=== PATIENT | female | born 1950 | race American Indian/Alaskan Native ===

== ENCOUNTER 2016-11-11 13:31 | Emergency (ER) | payer OTHER ==
[2016-11-11 13:31] VITALS: BMI 32.2
[2016-11-11 13:40] VITALS: RESP 20; O2SAT 97
--- NOTE | 2016-11-11 14:42 | C.PDOC ---
History Of Present Illness 66 yo female w/PMHx of HTN, RhA, come in for evaluation of sudden onset of upper frontal gum bleeding developed this AM, while brushing teeth resolved with time. Pt admits, woke up this AM with headache and dizziness that last for few hours and resolved . At present time, pt admits- asymptomatic. Pt sts, " my BP was running high lately". Pt takes Lazartan daily at night time, complaint. Otherwise, pt denies worse headache of life, visual changes, focal deficits, CP , SOB, dyspnea, palpitation, diaphoresis, abd. pain, N/V/D, back pain, hematuria , denies anticoagulation therapy. Ambulate to ED for evaluation, not in any apparent distress. FYI: Records from previous visits review and noted pt baseline BP 160'/80'. Time Seen by Provider: 11/11/16 14:01 Chief Complaint (Nursing): Dental Pain History Per: Patient Past Medical History Reviewed: Historical Data, Nursing Documentation, Vital Signs Vital Signs: Last Vital Signs Temp 97.7 F 11/11/16 13:39 Pulse 94 H 11/11/16 13:39 Resp 20 11/11/16 13:39 BP 194/78 H 11/11/16 13:39 Pulse Ox 97 11/11/16 14:42 - Medical History PMH: Diabetes, HTN, Hypercholesterolemia, Rheumatoid Arthritis, TIA (2005) - [facility] Procedures CLOSED ENDOSCOPIC BIOPSY OF LARGE INTESTINE (10/11/02) ENDO RECTUM POLYPECTOMY (10/11/02) ESOPHAGOGASTRODUODENOSCOPY [EGD] W/CLOSED BIOPSY (10/03/06) Family History: States: No Known Family Hx - Social History Hx Tobacco Use: No Hx Alcohol Use: No Hx Substance Use: No - Immunization History Hx Tetanus Toxoid Vaccination: Yes Hx Influenza Vaccination: Yes Hx Pneumococcal Vaccination: Yes Review Of Systems Except As Marked, All Systems Reviewed And Found Negative. Constitutional: Negative for: Fever, Chills Eyes: Negative for: Vision Change, Eyelid Inflammation, Redness ENT: Positive for: Mouth Pain. Negative for: Mouth Swelling, Throat Pain, Throat Swelling Cardiovascular: Negative for: Chest Pain, Palpitations, Edema, Light Headedness Respiratory: Negative for: Cough, Shortness of Breath Gastrointestinal: Negative for: Nausea, Vomiting, Abdominal Pain Genitourinary: Negative for: Incontinence Musculoskeletal: Negative for: Neck Pain, Back Pain Neurological: Negative for: Weakness, Numbness, Altered Mental Status Physical Exam - Physical Exam Appears: Well, Non-toxic, No Acute Distress Skin: Normal Color, Warm, Dry Head: Normacephalic Eye(s): bilateral: Normal Inspection, PERRL, EOMI Ear(s): Bilateral: Normal Nose: Normal, No Discharge Oral Mucosa: Moist, No Drooling Gingiva: Erythema (mild erythema over Left upper gingiva. no edema, no flactulance.) Throat: Normal Neck: Normal, Normal ROM, Supple Cardiovascular: Rhythm Regular Respiratory: Normal Breath Sounds, No Stridor, No Wheezing Gastrointestinal/Abdominal: Normal Exam, Soft, No Tenderness Back: Normal Inspection, No CVA Tenderness Extremity: Normal ROM Neurological/Psych: Oriented x3, Normal Speech, Normal Motor, Normal Sensation, Normal Reflexes ED Course And Treatment O2 Sat by Pulse Oximetry: 97 Pulse Ox Interpretation: Normal Progress Note: On re-eval, pt is afebrile, hemodynamicaly stable. Non-toxic. Ambulatory in ED with stable gait. ENT: no acute findings, no evidence of tooth abscess. Neurologicaly intact. Pt has hx of HTN poorly controlled. Pt advsied and ref. to F/u with PMD In 2-3 days for re-eval. return if any new changes. Disposition Counseled Patient/Family Regarding: Diagnosis, Need For Followup - Disposition Referrals: Mary Jo Rodriguez MD [Staff Provider] - Disposition: HOME/ ROUTINE Disposition Time: 14:42 Condition: STABLE Additional Instructions: Follow up with PMD in 1-2 days for re-evaluation and BP adjustment. return to ED if any worsening ro new changes. Instructions: Chronic Hypertension (ED) - Clinical Impression Clinical Impression: Hypertension
[2016-11-11 15:05] VITALS: BP 174/88; PULSE 78; TEMP 97.9
== END 2016-11-11 15:06 | disposition home or self-care (01) ==
LOC: C.ER 13:31
DX: I10 Essential (primary) hypertension (principal)

== ENCOUNTER 2017-05-31 11:00 | Emergency (ER) | payer OTHER ==
[2017-05-31 11:01] VITALS: BMI 33.1
[2017-05-31 11:29] VITALS: RESP 18; TEMP 98.1
--- NOTE | 2017-05-31 12:44 | C.PDOC ---
History Of Present Illness 66 year old female presents to the ED with complaints of a cough that has been occurring for the past 2 days. Patient states her cough is associated with a runny nose with "post nasal drip symptoms". Patients denies fever, CP, SOB, rash , recent travel, no known sick contact. Time Seen by Provider: 05/31/17 11:38 Chief Complaint (Nursing): Cough, Cold, Congestion History Per: Patient History/Exam Limitations: no limitations Onset/Duration Of Symptoms: Days Current Symptoms Are (Timing): Still Present Sick Contacts (Context): None Associated Symptoms: Cough, Sputum, Sinus Drainage. denies: Fever, Chills Recent travel outside of the [place]: No Additional History Per: Patient Past Medical History Reviewed: Historical Data, Nursing Documentation, Vital Signs Vital Signs: Last Vital Signs Temp 98.1 F 05/31/17 11:28 Pulse 65 05/31/17 12:58 Resp 18 05/31/17 12:58 BP 142/82 05/31/17 12:58 Pulse Ox 97 05/31/17 17:09 - Medical History PMH: Diabetes, HTN, Hypercholesterolemia, Rheumatoid Arthritis, TIA (2005) Surgical History: No Surg Hx - [facility] Procedures CLOSED ENDOSCOPIC BIOPSY OF LARGE INTESTINE (10/11/02) ENDO RECTUM POLYPECTOMY (10/11/02) ESOPHAGOGASTRODUODENOSCOPY [EGD] W/CLOSED BIOPSY (10/03/06) Family History: States: Unknown Family Hx - Social History Hx Tobacco Use: No Hx Alcohol Use: No Hx Substance Use: No - Immunization History Hx Tetanus Toxoid Vaccination: Yes Hx Influenza Vaccination: Yes Hx Pneumococcal Vaccination: Yes Physical Exam - Physical Exam Appears: Well, Non-toxic, No Acute Distress Skin: Normal Color, Warm, Dry, No Rash Head: Atraumatic, Normacephalic, Other (No sinus tenderness) Eye(s): bilateral: Normal Inspection, PERRL, EOMI Ear(s): Bilateral: Normal Nose: Normal, No Discharge Oral Mucosa: Moist Throat: Normal, No Erythema, No Exudate Neck: Normal ROM, Supple Chest: Symmetrical, No Tenderness Cardiovascular: Rhythm Regular, No Friction Rub, No Murmur Respiratory: Normal Breath Sounds, No Accessory Muscle Use, No Rhonchi, No Wheezing Gastrointestinal/Abdominal: Soft, No Tenderness Neurological/Psych: Oriented x3, Normal Speech, Normal Cognition Gait: Steady ED Course And Treatment O2 Sat by Pulse Oximetry: 97 (Room air) Pulse Ox Interpretation: Normal Medical Decision Making Medical Decision Making: Plan : * Claritin 10 mg PO * Motrin 600 mg PO * Predisone 40 mg PO Disposition - Disposition Referrals: Mary Jo Rodriguez MD [Primary Care Provider] - Disposition: HOME/ ROUTINE Disposition Time: 12:41 Condition: GOOD Additional Instructions: Follow up with the medical doctor within 1-2 days. Return if worsened. Prescriptions: Ibuprofen [Motrin] 600 mg PO TID #21 tab Loratadine [Claritin] 10 mg PO DAILY #10 tab predniSONE [Prednisone] 20 mg PO BID #10 tab Instructions: Upper Respiratory Infection (ED) Forms: [employer] (Korean) - Clinical Impression Clinical Impression: Upper respiratory infection - PA / [employer]ORER [employer]SE / Resident Statement MD/DO has reviewed & agrees with the documentation as recorded. - Scribe Statement The provider has reviewed the documentation as recorded by the Scribe Oj Arias All medical record entries made by the Scribe were at my direction and personally dictated by me. I have reviewed the chart and agree that the record accurately reflects my personal performance of the history, physical exam, medical decision making, and the department course for this patient. I have also personally directed, reviewed, and agree with the discharge instructions and disposition.
[2017-05-31 12:58] VITALS: BP 142/82; PULSE 65
[2017-05-31 17:04] VITALS: O2SAT 97
== END 2017-05-31 12:59 | disposition home or self-care (01) ==
LOC: C.ER 11:00 → SUPCPDRO 11:00 → C.ER 12:59
DX: J06.9 Acute upper respiratory infection, unspecified (principal)

== ENCOUNTER 2018-02-27 15:03 | Emergency (ER) | payer OTHER ==
[2018-02-27 15:03] VITALS: BMI 32.8
[2018-02-27 15:29] VITALS: BP 174/81; PULSE 72; RESP 18; TEMP 98.4; O2SAT 98
--- NOTE | 2018-02-27 16:16 | C.PDOC ---
History Of Present Illness 67yo female with history of diabetes, neuropathy, vascular issues, arthritis, comes to ER with complaints of right groin pain which is shooting down her leg. Patient reports the pain is making it hard for her to drive and has been ongoing and worsening for the past 3 weeks. She is currently taking Gabapentin but states only takes it 2x per day instead of TID as the medication makes her sleepy. She denies any trauma, injury, weakness, numbness, fevers, leg swelling , chest pain, shortness of breath or prolonged immobilizations. Patient has a secondary complaint of rash on bilateral forearms, present for an unclear period of time. She states the rash is similar to what she has had in the past during summer time and is unrelieved with calamine lotion and hydrocortisone cream use. Time Seen by Provider: 02/27/18 15:40 Chief Complaint (Nursing): Lower Extremity Problem/Injury History Per: Patient History/Exam Limitations: no limitations Onset/Duration Of Symptoms: Days, Persistent Current Symptoms Are (Timing): Worse Additional History Per: Patient Past Medical History Reviewed: Historical Data, Nursing Documentation, Vital Signs Vital Signs: Last Vital Signs Temp 98.4 F 02/27/18 15:24 Pulse 72 02/27/18 15:24 Resp 18 02/27/18 15:24 BP 174/81 H 02/27/18 15:24 Pulse Ox 98 03/02/18 18:06 - Medical History PMH: Diabetes, HTN, Hypercholesterolemia, Rheumatoid Arthritis, TIA (2005) Surgical History: No Surg Hx - [facility] Procedures CLOSED ENDOSCOPIC BIOPSY OF LARGE INTESTINE (10/11/02) ENDO RECTUM POLYPECTOMY (10/11/02) ESOPHAGOGASTRODUODENOSCOPY [EGD] W/CLOSED BIOPSY (10/03/06) Family History: States: Unknown Family Hx - Social History Hx Tobacco Use: No Hx Alcohol Use: No Hx Substance Use: No - Immunization History Hx Tetanus Toxoid Vaccination: No Hx Influenza Vaccination: No Hx Pneumococcal Vaccination: No Review Of Systems Constitutional: Negative for: Fever, Chills Cardiovascular: Negative for: Chest Pain Respiratory: Negative for: Shortness of Breath Musculoskeletal: Positive for: Leg Pain (left sided) Skin: Positive for: Rash Neurological: Negative for: Weakness, Numbness Physical Exam - Physical Exam Appears: Non-toxic, No Acute Distress Skin: Warm, Dry, Rash (scattered papules on bilateral forearms) Head: Atraumatic, Normacephalic Eye(s): bilateral: Normal Inspection Neck: Supple Chest: Symmetrical Cardiovascular: Rhythm Regular Extremity: Normal ROM (FROM left hip, knee, and ankle.), Tenderness (right thigh , no swelling or redness), No Pedal Edema, No Calf Tenderness, No Deformity, No Swelling, Other (no skin changes; no darien's sign) Pulses: Left Femoral: Normal, Right Femoral: Normal, Left Dorsalis Pedis: Normal , Right Dorsalis Pedis: Normal Neurological/Psych: Oriented x3, Normal Speech, Normal Cognition, Normal Motor, Normal Sensation Gait: Steady ED Course And Treatment O2 Sat by Pulse Oximetry: 98 (RA) Pulse Ox Interpretation: Normal Medical Decision Making Medical Decision Making: Impression: Leg pain, skin rash. discussed with to reason for pain not clear , but given hx of other vascular problems, needs to f/u with Dr Braun. little suspicion for dvt; no posterior calf pain, swelling or tenderness. Plan: -- Patient instructed to take Gabapentin as prescribed. Also instructed to take Lotrimine for her rash. Discussed with patient for need for follow up with Dr. Rodriguez and Dr. Braun. Patient is stable upon discharge home. Disposition Counseled Patient/Family Regarding: Diagnosis, Need For Followup, Rx Given - Disposition Referrals: Mary Jo Rodriguez MD [Staff Provider] - Serafin Braun Jr., MD [Staff Provider] - Disposition: HOME/ ROUTINE Disposition Time: 16:16 Condition: GOOD Additional Instructions: Please take your gabapentin as prescribed. Continue meloxicam. Take Tylenol as well. Follow up as soon as possible with Viky Rodriguez and Kade. 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 - Scribe Statement The provider has reviewed the documentation as recorded by the Rena Ceballos Provider Attestation: All medical record entries made by the Rena were at my direction and personally dictated by me. I have reviewed the chart and agree that the record accurately reflects my personal performance of the history, physical exam, medical decision making, and the department course for this patient. I have also personally directed, reviewed, and agree with the discharge instructions and disposition.
== END 2018-02-27 16:32 | disposition home or self-care (01) ==
LOC: C.ER 15:03
DX: M79.604 Pain in right leg (principal)

== ENCOUNTER 2018-05-07 12:02 | Emergency (ER) | payer OTHER ==
[2018-05-07 12:02] VITALS: BMI 32.8
[2018-05-07 12:11] VITALS: BP 137/85; PULSE 71; RESP 18; TEMP 98.3; O2SAT 99
[2018-05-07] MEDS ORDERED: Dexamethasone 4 mg/1 ml IM STA (12:31)
--- NOTE | 2018-05-07 12:34 | C.PDOC ---
History Of Present Illness 67 year old female presents to the ER with a complaint of itchy diffuse hives for the past [address] days after having a [address] with IV contrast of the leg 3 days ago. Patient states at the time she was pre-medicated with benadryl and prednisone. Denies SOB, lip or tongue swelling. Time Seen by Provider: 05/07/18 12:15 Chief Complaint (Nursing): Abnormal Skin Integrity History Per: Patient History/Exam Limitations: no limitations Onset/Duration Of Symptoms: Days Current Symptoms Are (Timing): Still Present Quality Of Symptoms: Itching Recent travel outside of the [place]: No Past Medical History Reviewed: Historical Data, Nursing Documentation, Vital Signs Vital Signs: Last Vital Signs Temp 98.3 F 05/07/18 12:08 Pulse 71 05/07/18 12:08 Resp 18 05/07/18 12:08 BP 137/85 05/07/18 12:08 Pulse Ox 99 05/07/18 12:42 - Medical History PMH: Diabetes, HTN, Hypercholesterolemia, Rheumatoid Arthritis, TIA (2005, 2011 stroke) - [facility] Procedures CLOSED ENDOSCOPIC BIOPSY OF LARGE INTESTINE (10/11/02) ENDO RECTUM POLYPECTOMY (10/11/02) ESOPHAGOGASTRODUODENOSCOPY [EGD] W/CLOSED BIOPSY (10/03/06) Family History: States: Unknown Family Hx - Social History Hx Tobacco Use: No Hx Alcohol Use: No Hx Substance Use: No - Immunization History Hx Tetanus Toxoid Vaccination: No Hx Influenza Vaccination: No Hx Pneumococcal Vaccination: No Review Of Systems Except As Marked, All Systems Reviewed And Found Negative. Skin: Positive for: Rash Physical Exam - Physical Exam Appears: Non-toxic, Other (Scratching, mildly uncomfortable) Skin: Warm, Dry, Other (Mild diffuse urticaria to arms, chest, and legs) Head: Atraumatic, Normacephalic Eye(s): bilateral: Normal Inspection Nose: Normal Oral Mucosa: Moist, No Drooling Tongue: Normal Appearing, No Swelling Lips: Normal Appearing, No Swelling Throat: Normal, No Erythema, No Other (Swelling) Neck: Normal, Supple Chest: Symmetrical, No Tenderness Cardiovascular: Rhythm Regular Respiratory: Normal Breath Sounds, No Rales, No Rhonchi, No Wheezing Neurological/Psych: Oriented x3, Normal Speech ED Course And Treatment O2 Sat by Pulse Oximetry: 99 (Room air) Pulse Ox Interpretation: Normal Progress Note: Claritin, decadron, and pepcid administered. Patient reports improvement of symptoms, will discharge home with Rx and instructions to follow up with PMD. Disposition Counseled Patient/Family Regarding: Diagnosis, Need For Followup, Rx Given - Disposition Referrals: [facility] [Outside] Disposition: HOME/ ROUTINE Disposition Time: 12:45 Condition: STABLE Additional Instructions: FOLLOW UP IN THE MEDICAL CLINIC IN 1-2 DAYS USE CLARITIN ONCE DAILY NEEDED FOR ITCHING RETURN TO ER IF SYMPTOMS WORSEN MONITOR YOUR BLOOD SUGAR CLOSELY, THE DECADRON YOU WERE GIVEN WILL RAISE IT Prescriptions: Loratadine [Claritin] 10 mg PO DAILY PRN #30 tab PRN Reason: Itching / Pruritus Instructions: Jack (DC), Drug Allergy Forms: [employer] (Bengali) Print Language: BURKINAN - Clinical Impression Clinical Impression: Allergic reaction caused by a drug, Allergy to IVP dye - Scribe Statement The provider has reviewed the documentation as recorded by the Scribe Provider Attestation: Lacho Andersen All medical record entries made by the Scribe were at my direction and personally dictated by me. I have reviewed the chart and agree that the record accurately reflects my personal performance of the history, physical exam, medical decision making, and the department course for this patient. I have also personally directed, reviewed, and agree with the discharge instructions and disposition.
== END 2018-05-07 12:51 | disposition home or self-care (01) ==
LOC: C.ER 12:02
DX: L50.9 Urticaria, unspecified (principal); T50.8X5A Adverse effect of diagnostic agents, initial encounter; E78.00 Pure hypercholesterolemia, unspecified; I10 Essential (primary) hypertension; E11.9 Type 2 diabetes mellitus without complications; M06.9 Rheumatoid arthritis, unspecified; Z86.73 Personal history of transient ischemic attack (TIA), and cerebral infarction without residual deficits
CPT/HCPCS: 96372; 99283; J1100

== ENCOUNTER 2018-07-30 17:13 | Emergency (ER) | payer SELFPAY ==
[2018-07-30 17:14] VITALS: BMI 32.8
[2018-07-30 17:23] VITALS: BP 176/99; PULSE 75; RESP 18; TEMP 98.3; O2SAT 100
--- NOTE | 2018-07-30 17:53 | C.PDOC ---
History Of Present Illness 68 y/o female presents to the ED complaining of 6 days of swelling and pain to left side of nose. States she had a piercing in her left nose which got infected. Patient tried applying bacitracin and has taken 3 antibiotics without relief. No active bleeding. Denies any fever or chills. Time Seen by Provider: 07/30/18 17:30 Chief Complaint (Nursing): Abnormal Skin Integrity History Per: Patient History/Exam Limitations: no limitations Onset/Duration Of Symptoms: Days Current Symptoms Are (Timing): Still Present Past Medical History Reviewed: Historical Data, Nursing Documentation, Vital Signs Vital Signs: Last Vital Signs Temp 98.3 F 07/30/18 17:21 Pulse 75 07/30/18 17:21 Resp 18 07/30/18 17:21 BP 176/99 H 07/30/18 17:21 Pulse Ox 100 07/30/18 17:21 - Medical History PMH: Diabetes, HTN, Hypercholesterolemia, Rheumatoid Arthritis, TIA (2005, 2011 stroke) - [facility] Procedures CLOSED ENDOSCOPIC BIOPSY OF LARGE INTESTINE (10/11/02) ENDO RECTUM POLYPECTOMY (10/11/02) ESOPHAGOGASTRODUODENOSCOPY [EGD] W/CLOSED BIOPSY (10/03/06) Family History: States: Unknown Family Hx - Social History Hx Tobacco Use: No Hx Alcohol Use: No Hx Substance Use: No - Immunization History Hx Tetanus Toxoid Vaccination: No Hx Influenza Vaccination: No Hx Pneumococcal Vaccination: No Review Of Systems Except As Marked, All Systems Reviewed And Found Negative. Constitutional: Negative for: Fever, Chills ENT: Positive for: Nose Pain (and swelling). Negative for: Nose Discharge, Other (epistaxis) Physical Exam - Physical Exam Appears: Well, Non-toxic, No Acute Distress Skin: Normal Color, Warm, No Rash Head: Atraumatic, Normacephalic Eye(s): bilateral: Normal Inspection Nose: No Discharge, No Epistaxis, Tenderness (and swelling to the left external nose) Oral Mucosa: Moist Neck: Normal ROM, Supple Neurological/Psych: Oriented x3, Normal Speech ED Course And Treatment O2 Sat by Pulse Oximetry: 100 (RA) Pulse Ox Interpretation: Normal Progress Note: Patient started on PO Clinda. Plan is to discharge home with antibiotic and bactroban ointment. Disposition - Disposition Disposition: HOME/ ROUTINE Disposition Time: 17:53 Condition: STABLE Additional Instructions: Follow up with your PMD within 1-2 days. Return to ED if feel worse. 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 - Scribe Statement The provider has reviewed the documentation as recorded by the Rena Morales All medical record entries made by the Jesseeibcarola were at my direction and personally dictated by me. I have reviewed the chart and agree that the record accurately reflects my personal performance of the history, physical exam, medical decision making, and the department course for this patient. I have also personally directed, reviewed, and agree with the discharge instructions and disposition.
== END 2018-07-30 18:02 | disposition home or self-care (01) ==
LOC: C.ER 17:13
DX: L08.9 Local infection of the skin and subcutaneous tissue, unspecified (principal)

== ENCOUNTER 2018-08-22 10:17 | Observation (INO) | payer MEDICAID, SELFPAY ==
[2018-08-22 10:17] VITALS: BMI 32.8
--- NOTE | 2018-08-22 12:59 | C.PDOC ---
History Of Present Illness 68 y/o female comes in to ED complaining of left-sided chest pain x4 days. Patient states it is sharp and constant for the last 3 days but resolved last night; however, she states the pain has returned today. Patient admits to nausea but denies vomiting, diarrhea, abdominal pain, cough, fever, or SOB. Time Seen by Provider: 08/22/18 10:42 Chief Complaint (Nursing): Chest Pain History Per: Patient History/Exam Limitations: no limitations Onset/Duration Of Symptoms: Days Current Symptoms Are (Timing): Still Present Past Medical History Reviewed: Historical Data, Nursing Documentation, Vital Signs Vital Signs: Last Vital Signs Temp 97.6 F 08/22/18 10:33 Pulse 72 08/22/18 10:33 Resp 18 08/22/18 10:33 BP 133/73 08/22/18 10:33 Pulse Ox 98 08/22/18 10:33 - Medical History PMH: Diabetes, HTN, Hypercholesterolemia, Rheumatoid Arthritis, TIA (2005, 2011 stroke) - [facility] Procedures CLOSED ENDOSCOPIC BIOPSY OF LARGE INTESTINE (10/11/02) ENDO RECTUM POLYPECTOMY (10/11/02) ESOPHAGOGASTRODUODENOSCOPY [EGD] W/CLOSED BIOPSY (10/03/06) Family History: States: No Known Family Hx - Social History Hx Tobacco Use: No Hx Alcohol Use: No Hx Substance Use: No - Immunization History Hx Tetanus Toxoid Vaccination: No Hx Influenza Vaccination: No Hx Pneumococcal Vaccination: No Review Of Systems Constitutional: Negative for: Fever Cardiovascular: Positive for: Chest Pain (left-sided) Respiratory: Negative for: Cough, Shortness of Breath Gastrointestinal: Positive for: Nausea. Negative for: Vomiting, Abdominal Pain, Diarrhea Physical Exam - Physical Exam Appears: Non-toxic, No Acute Distress Skin: Warm, Dry Head: Atraumatic, Normacephalic Eye(s): bilateral: Normal Inspection, PERRL, EOMI Oral Mucosa: Moist Neck: Supple Chest: Symmetrical, No Tenderness Cardiovascular: Rhythm Regular, No Murmur Respiratory: Normal Breath Sounds, No Rales, No Rhonchi, No Wheezing Gastrointestinal/Abdominal: Soft, No Tenderness Extremity: No Pedal Edema Extremity: Bilateral: Atraumatic, Normal Color And Temperature, Normal ROM Neurological/Psych: Oriented x3, Normal Speech ED Course And Treatment ECG: Interpreted By Me, Viewed By Me ECG Rhythm: Sinus Rhythm Interpretation Of ECG: Normal axis. No acute ST/T wave changes. Rate From EC O2 Sat by Pulse Oximetry: 98 - Other Rad CXR X-Ray: Read By Radiologist Interpretation: FINDINGS: Examination limited by habitus. LUNGS: No focal consolidation. Please note that chest x-ray has limited sensitivity for the detection of pulmonary masses. PLEURA: No significant pleural effusion identified. No definite pneumothorax . CARDIOVASCULAR: Heart size appears within normal limits. Atherosclerotic calcification present. OSSEOUS STRU CTURES: No acute osseous abnormality identified. VISUALIZED UPPER ABDOMEN: Unremarkable. OTHER FINDINGS: None. IMPRESSION: No focal consolidation identified. 9 mm nodular opacity at the right lung base favored to represent confluence of shadows rather than pulmonary nodule. Lung bases on CTA runoff performed 05/04/18 demonstrates no evidence of abnormality in this region. If indicated, repeat chest PA and lateral radiographs may be considered. Progress Note: Bloodwork and CXR ordered and reviewed. Disposition - Disposition Forms: [employer] (Kazakh) - Scribe Statement The provider has reviewed the documentation as recorded by the Rena Pedroza Provider Attestation: All medical record entries made by the Jesseeibcarola were at my direction and personally dictated by me. I have reviewed the chart and agree that the record accurately reflects my personal performance of the history, physical exam, medical decision making, and the department course for this patient. I have also personally directed, reviewed, and agree with the discharge instructions and disposition.
--- NOTE | 2018-08-22 13:34 | RAD ---
HISTORY: cp COMPARISON: None available. TECHNIQUE: Chest, one view. FINDINGS: Examination limited by habitus. LUNGS: No focal consolidation. Please note that chest x-ray has limited sensitivity for the detection of pulmonary masses. PLEURA: No significant pleural effusion identified. No definite pneumothorax . CARDIOVASCULAR: Heart size appears within normal limits. Atherosclerotic calcification present. OSSEOUS STRUCTURES: No acute osseous abnormality identified. VISUALIZED UPPER ABDOMEN: Unremarkable. OTHER FINDINGS: None. IMPRESSION: No focal consolidation identified. 9 mm nodular opacity at the right lung base favored to represent confluence of shadows rather than pulmonary nodule. Lung bases on CTA runoff performed 05/04/18 demonstrates no evidence of abnormality in this region. If indicated, repeat chest PA and lateral radiographs may be considered.
[2018-08-22 13:59] LABS: BASO # 0.1 K/uL (0.0-0.2); BASO % 0.7 % (0.0-2.0); EOS # 0.3 K/uL (0.0-0.7); EOS % 2.9 % (0.0-4.0); HEMOGLOBIN 13.2 g/dL (11.0-16.0); LYMPH # 2.4 K/uL (1.0-4.3); LYMPH % 25.7 % (20.0-40.0); MEAN CELL VOLUME 83.6 fL (81.0-99.0); MEAN CORPUSCULAR HEMOGLOBIN 27.7 pg (27.0-31.0); MEAN CORPUSCULAR HGB CONC 33.1 g/dL (33.0-37.0); MEAN PLATELET VOLUME 9.3 fL (7.2-11.7); MONO # 0.9 K/uL (0.0-0.8); MONO % 9.8 % (0.0-10.0); NEUT # 5.7 K/uL (1.8-7.0); NEUT % 60.9 % (50.0-75.0); RBC 4.78 Mil/uL (3.80-5.20); WHITE BLOOD COUNT 9.3 K/uL (4.8-10.8)
[2018-08-22 14:02] LABS: PROTHROMBIN TIME 11.2 SECONDS (9.7-12.2)
[2018-08-22 15:06] LABS: BLOOD UREA NITROGEN 19 mg/dL (7-17); GFR NON-AFRICAN AMERICAN 41
[2018-08-22 15:07] LABS: ALB/GLOB RATIO 1.4 (1.0-2.1); ALBUMIN 4.7 g/dL (3.5-5.0); ALT/SGPT 18 U/L (9-52); AST/SGOT 29 U/L (14-36); CALCIUM 9.8 mg/dl (8.6-10.4); CK-MB 0.35 ng/mL (0.0-3.38)
[2018-08-22] MEDS ORDERED: Dextrose 50% SYRINGE Inj (50 ml) IV PRN (16:03)
[2018-08-22] MEDS ORDERED: Glucagon Recombinant 1 mg Inj IM PRN (16:03)
[2018-08-22] MEDS ORDERED: (Novolog) Insulin Aspart, Recombinant 100 u/ml 10 ml vial SC SCH (16:30)
--- NOTE | 2018-08-22 17:03 | CP.PCM.HP ---
History of Present Illness - History of Present Illness History of Present Illness: cc: "chest pain" Ms. Bear is a 68 year old female PMH hypertension, diabetes, hypercholesterolemia, rheumatoid arthritis, CVA x2 in 2011 with TIA in 2005 came in today for persistent L chest pain x4 days. The constant sharp pain worsens in waves up to 10/10, lowest 5/10. She thought it was bloating, however GasX did not help. There is associated dizziness, shortness of breath, nausea without vomiting. She was seen in the [facility] 07/30 for a nose infection. She had replaced her nose ring with non-hypoallergenic metal which she reacted to. She was given Clindamycin for that infection. About a week later, she was getting diarrhea. The antibiotic was stopped as her nose was looking better, and she tested negative for C. diff at that visit. Her diarrhea is improving slowly, from 5-6 episodes to poorly formed yesterday. PMD: Jennifer PMH: HTN, DM, HLD, RA, stroke x2 in 2011, TIA in 2005 Med: HCTZ 25mg po daily, Losartan 100mg po every other day, Meloxicam 7.5mg po daily, Gabapentin 300mg po bid, Lantus 20u sc HS, Simvastatin 20mg po HS, Januvia 100mg po daily, Metformin 1000mg po BID All: Shellfish, Iodine - hives PSxHx: Bilateral endarterectomy (2005, 2011), ADÁN 1999 (d/t fibroids) FamHx: Father - DM, stroke @ 56, Mother - @ 26, likely EtOH/liver cirrhosis, aunt - breast CA, brother - AIDS, sister - Lupus SocHx: quit smoking 2011 (smoked 1+ppd), Denies ever alcohol or illicit drug use. Lives with roommate in apartment. 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 Full Code Present on Admission - Present on Admission Any Indicators Present on Admission: Yes Review of Systems - Constitutional Constitutional: Fatigue, Malaise. absent: Chills, Excessive Sweating, Fever, Headache, Increased Appetite, Weight Loss - EENT Eyes: absent: Blurred Vision, Diplopia Ears: absent: Decreased Hearing, Tinnitus Nose/Mouth/Throat: absent: Nasal Congestion, Nasal Discharge, Nasal Obstruction, Nose Pain, Dry Mouth, Dysphagia, Odynophagia - Cardiovascular Cardiovascular: Chest Pain, Dyspnea on Exertion, Lightheadedness. absent: Chest Pain at Rest, Diaphoresis, Rapid Heart Rate, Syncope - Respiratory Respiratory: Dyspnea on Exertion. absent: Cough, Dyspnea, Chest Congestion - Gastrointestinal Gastrointestinal: Belching, Bloating, Change in Bowel Habits, Diarrhea, Loose Stools, Nausea. absent: Constipation, Dysphagia, Excessive Flatus, Heartburn, Vomiting - Genitourinary Genitourinary: absent: Difficulty Urinating, Dysuria, Urinary Frequency, Urinary Hesitance - Musculoskeletal Musculoskeletal: Back Pain, Numbness, Tingling. absent: Arthralgias, Muscle Weakness - Integumentary Integumentary: absent: Bleeding Lesions, Rash, Skin Pain, Swelling, Unusual Bruising, Wounds - Neurological Neurological: Numbness, Tingling. absent: Confusion, Frequent Falls, Headaches, Syncope, Weakness Past Patient History - Infectious Disease Hx of Infectious Diseases: None - Past Social History Smoking Status: Former Smoker Alcohol: None Drugs: Denies Home Situation {Lives}: Roommate - CARDIAC Hx Hypercholesterolemia: Yes Hx Hypertension: Yes - NEUROLOGICAL Hx Transient Ischemic Attacks (TIA): Yes (2005, 2011 stroke) - ENDOCRINE/METABOLIC Hx Endocrine Disorders: Yes Hx Diabetes Mellitus Type 2: Yes - MUSCULOSKELETAL/RHEUMATOLOGICAL Hx Rheumatoid Arthritis: Yes - PSYCHIATRIC Hx Substance Use: No - SURGICAL HISTORY Hx Surgeries: Yes Hx Hysterectomy: Yes Other/Comment: Endarectomy x2 - ANESTHESIA Hx Anesthesia: Yes Hx Anesthesia Reactions: No Hx Malignant Hyperthermia: No Meds Allergies/Adverse Reactions: Allergies Allergy/AdvReac Type Severity Reaction Status Date / Time iodine Allergy Verified 08/22/18 10:36 shellfish derived Allergy Verified 08/22/18 10:36 Physical Exam - Constitutional Appears: Well, No Acute Distress - Head Exam Head Exam: ATRAUMATIC, NORMOCEPHALIC - Eye Exam Eye Exam: EOMI, Normal appearance, PERRL Additional comments: glasses - ENT Exam ENT Exam: Mucous Membranes Dry Additional comments: old nose ring in place. No erythema, edema, tenderness on L nostril - Neck Exam Neck exam: Positive for: Normal Inspection. Negative for: Lymphadenopathy, Te nderness, Thyromegaly - Respiratory Exam Respiratory Exam: Clear to Auscultation Bilateral, NORMAL BREATHING PATTERN. absent: Rales, Rhonchi, Wheezes - Cardiovascular Exam Cardiovascular Exam: REGULAR RHYTHM, +S1, +S2. absent: Gallop, Rubs, Systolic Murmur - GI/Abdominal Exam GI & Abdominal Exam: Normal Bowel Sounds, Soft. absent: Firm, Guarding, Rebound, Tenderness - Extremities Exam Extremities exam: Positive for: normal capillary refill, pedal pulses present. Negative for: calf tenderness, joint swelling, pedal edema Additional comments: IV access in R hand peripheral pulses palpable bilaterally (radial, DP) cool to touch - Back Exam Back exam: absent: CVA tenderness (L), CVA tenderness (R) - Neurological Exam Neurological exam: Alert, CN II-XII Intact, Normal Gait, Oriented x3, Reflexes Normal - Psychiatric Exam Psychiatric exam: Anxious - Skin Skin Exam: Dry, Normal Color Results - Vital Signs Recent Vital Signs: Last Vital Signs Temp 97.6 F 08/22/18 10:33 Pulse 73 08/22/18 12:13 Resp 18 08/22/18 12:13 BP 124/49 L 08/22/18 12:13 Pulse Ox 98 08/22/18 13:47 - Labs Result Diagrams: 08/22/18 13:53 08/22/18 13:53 Labs: Laboratory Results - last 24 hr 08/22/18 08/22/18 08/22/18 13:53 13:53 13:53 WBC 9.3 RBC 4.78 Hgb 13.2 Hct 40.0 MCV 83.6 MCH 27.7 MCHC 33.1 RDW 13.0 Plt Count 306 MPV 9.3 Neut % (Auto) 60.9 Lymph % (Auto) 25.7 [place] % (Auto) 9.8 Eos % (Auto) 2.9 Baso % (Auto) 0.7 Neut # (Auto) 5.7 Lymph # (Auto) 2.4 [place] # (Auto) 0.9 H Eos # (Auto) 0.3 Baso # (Auto) 0.1 PT 11.2 INR 1.0 APTT 33 Sodium 138 Potassium 4.6 Chloride 100 Carbon Dioxide 27 Anion Gap 16 BUN 19 H Creatinine 1.3 H Est GFR ( Amer) 50 Est GFR (Non-Af Amer) 41 Random Glucose 180 H Calcium 9.8 Total Bilirubin 1.1 AST 29 ALT 18 Alkaline Phosphatase 87 Total Creatine Kinase 59 CK-MB (Mass) 0.35 Troponin I < 0.0120 Total Protein 8.1 Albumin 4.7 Globulin 3.3 Albumin/Globulin Ratio 1.4 - EKG Data EKG Interpreted by: ER Physician EKG shows normal: Sinus rhythm Rate: Normal Assessment & Plan - Assessment and Plan (Free Text) Assessment: 68YO F PMH HTN, DM, hypercholesterolemia, RA, CVA x2 in 2012 admitted for persistent CP x4 days r/o ACS. Plan: CP r/o ACS - CXR (08/22): no focal consolidation identified. 9mm nodular opacity at R lung base likely confluence of shadows vs. pulm nodule. If repeat, obtain PA/lat CXR - ASA 325mg given in ED - GAVIN neg x2, EKG NSR@76 - f/u GAIVN, EKG @ 2200 - f/u ProBNP, lipid panel, TSH, A1c, d-dimer - f/u ECHO - Cardio consulted: Dr. Gipson - help appreciated Diabetes Mellitus with neuropathy - f/u Hgb A1c - home Lantus 20u sc HS - home Januvia 100mg po daily - hold home Metformin, Gabapentin - Accuchecks q6h - ISS, medium - hypoglycemia protocol Hypertension - hold home diuretics HCTZ, Losartan - monitor vitals Hypercholesterolemia - f/u lipid panel - home Atorvastatin -> Crestor 5mg po HS Stroke x2 in 2012 - ASA 81mg po daily - home Atorvastatin -> Crestor 5mg po HS Rheumatoid Arthritis - hold home Meloxicam PPx - DVT: ASA 81mg po daily - GI: not indicated - Diet: Consistent Card, HHD 2g Na d/w Dr. Yumiko Zamora PGY-1 - Date & Time Date: 08/22/18 Time: 16:00
[2018-08-22 18:00] LABS: HDL CHOLESTEROL 41 mg/dL (30-70); LIPASE 453 U/L (23-300)
[2018-08-22] MEDS: (Novolog) Insulin Aspart, Recombinant 100 u/ml 10 ml vial SC SCH (18:11)
[2018-08-22 18:13] LABS: LDL CHOLESTEROL 90 mg/dL (0-129)
[2018-08-22 18:21] LABS: B-TYPE NATRIURETIC PEPTIDE 26.3 pg/mL (0-900); CK-MB 0.27 ng/mL (0.0-3.38)
[2018-08-22] MEDS: (Lantus) Insulin Glargine, Recombinant SC SCH (22:43)
[2018-08-22 23:20] LABS: CK-MB < 0.22 ng/mL (0.0-3.38)
[2018-08-23 06:24] LABS: BASO # 0.1 K/uL (0.0-0.2); BASO % 1.2 % (0.0-2.0); EOS # 0.3 K/uL (0.0-0.7); EOS % 3.3 % (0.0-4.0); HEMOGLOBIN 13.1 g/dL (11.0-16.0); LYMPH # 2.9 K/uL (1.0-4.3); LYMPH % 34.7 % (20.0-40.0); MEAN CELL VOLUME 82.5 fL (81.0-99.0); MEAN CORPUSCULAR HEMOGLOBIN 27.9 pg (27.0-31.0); MEAN CORPUSCULAR HGB CONC 33.8 g/dL (33.0-37.0); MEAN PLATELET VOLUME 9.3 fL (7.2-11.7); MONO # 0.8 K/uL (0.0-0.8); MONO % 9.9 % (0.0-10.0); NEUT # 4.2 K/uL (1.8-7.0); NEUT % 50.9 % (50.0-75.0); RBC 4.69 Mil/uL (3.80-5.20); RED CELL DISTRIBUTION WIDTH 12.9 % (11.5-14.5); WHITE BLOOD COUNT 8.4 K/uL (4.8-10.8)
[2018-08-23] MEDS: (Novolog) Insulin Aspart, Recombinant 100 u/ml 10 ml vial SC SCH ×4 (06:42→17:48)
[2018-08-23 07:13] LABS: ALB/GLOB RATIO 1.2 (1.0-2.1); ALBUMIN 3.9 g/dL (3.5-5.0); ALT/SGPT 21 U/L (9-52); AST/SGOT 26 U/L (14-36); BLOOD UREA NITROGEN 21 mg/dL (7-17); CALCIUM 8.8 mg/dl (8.6-10.4); GFR NON-AFRICAN AMERICAN 50
[2018-08-23] MEDS: Saccharomyces Boulardi 250 mg Cap PO SCH ×2 (12:14→17:42)
[2018-08-23 12:34] VITALS: RESP 20
[2018-08-23] MEDS: Simethicone 80 mg Chewtab PO SCH ×3 (13:31→21:49)
--- NOTE | 2018-08-23 15:30 | CP.PCM.DIS ---
Provider - Provider Date of Admission: 08/22/18 14:27 Attending physician: Yasmine Calderon DO Consults: 08/22/18 16:04 Cardiology Consult Routine Comment: Consulting Provider: Mitesh Gipson Consulting Physician: Mitesh Gipson Reason for Consult: CP r/o ACS, Hx multiple CVA Time Spent in preparation of Discharge (in minutes): 45 Diagnosis - Discharge Diagnosis (1) Chest pain Status: Acute Hospital Course - Lab Results Lab Results: Most Recent Lab Values WBC 8.4 K/uL (4.8-10.8) 08/23/18 06:17 RBC 4.69 Mil/uL (3.80-5.20) 08/23/18 06:17 Hgb 13.1 g/dL (11.0-16.0) 08/23/18 06:17 Hct 38.7 % (34.0-47.0) 08/23/18 06:17 MCV 82.5 fL (81.0-99.0) 08/23/18 06:17 MCH 27.9 pg (27.0-31.0) 08/23/18 06:17 MCHC 33.8 g/dL (33.0-37.0) 08/23/18 06:17 RDW 12.9 % (11.5-14.5) 08/23/18 06:17 Plt Count 273 K/uL (130-400) 08/23/18 06:17 MPV 9.3 fL (7.2-11.7) 08/23/18 06:17 Neut % (Auto) 50.9 % (50.0-75.0) 08/23/18 06:17 Lymph % (Auto) 34.7 % (20.0-40.0) 08/23/18 06:17 [place] % (Auto) 9.9 % (0.0-10.0) 08/23/18 06:17 Eos % (Auto) 3.3 % (0.0-4.0) 08/23/18 06:17 Baso % (Auto) 1.2 % (0.0-2.0) 08/23/18 06:17 Neut # (Auto) 4.2 K/uL (1.8-7.0) 08/23/18 06:17 Lymph # (Auto) 2.9 K/uL (1.0-4.3) 08/23/18 06:17 [place] # (Auto) 0.8 K/uL (0.0-0.8) 08/23/18 06:17 Eos # (Auto) 0.3 K/uL (0.0-0.7) 08/23/18 06:17 Baso # (Auto) 0.1 K/uL (0.0-0.2) 08/23/18 06:17 PT 11.2 SECONDS (9.7-12.2) 08/22/18 13:53 INR 1.0 08/22/18 13:53 APTT 33 SECONDS (21-34) 08/22/18 13:53 D-Dimer, Quantitative < 200 ng/mlDDU (0-243) 08/22/18 17:35 Sodium 136 mmol/L (132-148) 08/23/18 06:17 Potassium 4.2 mmol/L (3.6-5.2) 08/23/18 06:17 Chloride 98 mmol/L (98-107) 08/23/18 06:17 Carbon Dioxide 30 mmol/L (22-30) 08/23/18 06:17 Anion Gap 12 (10-20) 08/23/18 06:17 BUN 21 mg/dL (7-17) H 08/23/18 06:17 Creatinine 1.1 mg/dL (0.7-1.2) 08/23/18 06:17 Est GFR ( Amer) > 60 08/23/18 06:17 Est GFR (Non-Af Amer) 50 08/23/18 06:17 POC Glucose (mg/dL) 214 mg/dL (65-110) H 08/23/18 11:51 Random Glucose 139 mg/dL (65-105) H D 08/23/18 06:17 Hemoglobin A1c 8.0 % (4.2-6.5) H 08/22/18 17:35 Calcium 8.8 mg/dl (8.6-10.4) 08/23/18 06:17 Phosphorus 4.3 mg/dL (2.5-4.5) 08/23/18 06:17 Magnesium 1.9 mg/dL (1.6-2.3) 08/23/18 06:17 Total Bilirubin 1.0 mg/dL (0.2-1.3) 08/23/18 06:17 AST 26 U/L (14-36) 08/23/18 06:17 ALT 21 U/L (9-52) 08/23/18 06:17 Alkaline Phosphatase 72 U/L (38-126) 08/23/18 06:17 Total Creatine Kinase 52 U/L (30-135) 08/22/18 22:41 CK-MB (Mass) < 0.22 ng/mL (0.0-3.38) 08/22/18 22:41 Troponin I < 0.0120 ng/mL (0.00-0.120) 08/22/18 22:41 NT-Pro-B Natriuret Pep 26.3 pg/mL (0-900) 08/22/18 17:35 Total Protein 7.2 g/dL (6.3-8.3) 08/23/18 06:17 Albumin 3.9 g/dL (3.5-5.0) 08/23/18 06:17 Globulin 3.2 gm/dL (2.2-3.9) 08/23/18 06:17 Albumin/Globulin Ratio 1.2 (1.0-2.1) 08/23/18 06:17 Triglycerides 120 mg/dL (0-149) D 08/22/18 17:35 Cholesterol 147 mg/dL (0-199) 08/22/18 17:35 LDL Cholesterol Direct 90 mg/dL (0-129) 08/22/18 17:35 HDL Cholesterol 41 mg/dL (30-70) 08/22/18 17:35 Lipase 453 U/L (23-300) H 08/22/18 17:35 TSH 3rd Generation 0.57 mIU/L (0.46-4.68) 08/22/18 17:35 - Hospital Course Hospital Course: Ms. Bear is a 68 year old female PMH hypertension, diabetes, hypercholesterolemia, rheumatoid arthritis, CVA x2 in 2011 with TIA in 2006 came in today for persistent L chest pain x4 days. The constant sharp pain worsens in waves up to 10/10, lowest 5/10. She thought it was bloating, however GasX did not help. There is associated dizziness, shortness of breath, nausea without v omiting. She was seen in the [facility] 07/30 for a nose infection. She had replaced her nose ring with non-hypoallergenic metal which she reacted to. She was given Clindamycin for that infection. About a week later, she was getting diarrhea. The antibiotic was stopped as her nose was looking better, and she tested negative for C. diff at that visit. Her diarrhea is improving slowly, from 5-6 episodes to poorly formed yesterday. CXR showed no focal consolidation, but a 9mm nodular opacity at R lung base likely confluence of shadows vs. pulm nodule. It was recommended that a repeat CXR be PA/lat for more detail. She was given ASA 325mg in the ED and restarted on most of her home meds while hospitalized. The meds that were held were due to her elevated BUN/Cr which have since normalized. Her BG checks have been on the higher side since she has been refusing ISS. Her BW was negative for organic causes: notably GAVIN neg x3, d-dimer neg, ProBNP 26.3, Lipid Panel normal, TSH normal, Hgb A1c 8.0. Her Lipase was elevated at 453, but that is similar to previous admission without present complaint. ECHO showed ___. Primary Diagnosis: Chest Pain r/o ACS This is a summary of the hospital course. Please refer to the EMR for more detail. - Date & Time of H&P Date of H&P: 08/23/18 Time of H&P: 16:00 Discharge Exam - Head Exam Head Exam: ATRAUMATIC, NORMOCEPHALIC - Eye Exam Eye Exam: EOMI, Normal appearance Pupil Exam: NORMAL ACCOMODATION Additional comments: glasses - ENT Exam ENT Exam: Mucous Membranes Moist Additional comments: old nose ring in place. No erythema, edema, tenderness on L nostril - Respiratory Exam Respiratory Exam: Clear to PA & Lateral, NORMAL BREATHING PATTERN, UNREMARKABLE. absent: Rales, Rhonchi, Wheezes - Cardiovascular Exam Cardiovascular Exam: REGULAR RHYTHM, +S1, +S2. absent: Gallop, Rubs, Systolic Murmur - GI/Abdominal Exam GI & Abdominal Exam: Normal Bowel Sounds, Soft. absent: Distended, Firm, Guarding, Rebound, Tenderness - Extremities Exam Extremities exam: normal capillary refill, pedal pulses present Additional comments: peripheral pulses palpable bilaterally (radial, DP) - Back Exam Back exam: absent: CVA tenderness (L), CVA tenderness (R) - Neurological Exam Neurological exam: Alert, CN II-XII Intact, Normal Gait, Oriented x3 - Psychiatric Exam Psychiatric exam: Normal Affect, Normal Mood - Skin Skin Exam: Dry, Normal Color, Warm Discharge Plan - Follow Up Plan Condition: GOOD Disposition: HOME/ ROUTINE Referrals: [facility] [Outside] Clinical Quality Measures - CQM - Stroke Antithrombotic Prescribed: Yes Statin prescribed: Yes
[2018-08-23 15:57] VITALS: O2SAT 96
--- NOTE | 2018-08-23 17:23 | CP.PCM.PN ---
Subjective - Date & Time of Evaluation Date of Evaluation: 08/23/18 Time of Evaluation: 17:00 - Subjective Subjective: PGY-1 Medicine Progress Note for Dr. Calderon Patient was seen and examined today at bedside in no acute distress. Nurse reports no overnight events. She reports feeling better overall with the pain persisting, but at a duller intensity. Denies nausea, vomiting, headache, shortness of breath, constipation, diarrhea. Objective - Vital Signs/Intake and Output Vital Signs (last 24 hours): Temp Pulse Resp BP Pulse Ox 98.0 F 79 20 111/68 96 08/23/18 15:00 08/23/18 16:17 08/23/18 15:00 08/23/18 15:00 08/23/18 16:04 Intake and Output: 08/23/18 08/23/18 06:59 18:59 Intake Total 580 Balance 580 - Medications Medications: Current Medications Aspirin (Ecotrin) 81 mg PO DAILY [facility] Last Admin: 08/23/18 10:35 Dose: 81 mg Dextrose (Dextrose 50% Inj) 0 ml IV STAT PRN; Protocol PRN Reason: Hypoglycemia Protocol Dextrose (Glutose 15) 0 gm PO ONCE PRN; Protocol PRN Reason: Hypoglycemia Protocol Gabapentin (Neurontin) 600 mg PO BID [facility] Last Admin: 08/23/18 10:35 Dose: 600 mg Glucagon (Glucagen Diagnostic Kit) 0 mg IM STAT PRN; Protocol PRN Reason: Hypoglycemia Protocol Heparin Sodium (Porcine) (Heparin) 5,000 units SC Q12 [facility] Last Admin: 08/23/18 10:36 Dose: Not Given Dextrose (Dextrose 5% In Water 1000 Ml) 1,000 mls @ 0 mls/hr IV .Q0M PRN; Prot ocol PRN Reason: Hypoglycemia Protocol Influenza Virus Vaccine (Fluzone Quad [id number]) 60 mcg IM .ONCE ONE Stop: 08/24/18 10:01 Insulin Aspart (Novolog) 0 unit SC Q6 [facility]; Protocol Last Admin: 08/23/18 12:09 Dose: Not Given Insulin Glargine (Lantus) 20 unit SC HS [facility] Last Admin: 08/22/18 22:43 Dose: 20 unit Pneumococcal Polyvalent Vaccine (Pneumovax 23 Vaccine) 0.5 ml IM .ONCE ONE Stop: 08/24/18 10:01 Rosuvastatin Calcium (Crestor) 5 mg PO [facility] Last Admin: 08/22/18 22:15 Dose: 5 mg Saccharomyces Boulardii (Florastor) 250 mg PO BID [facility] Last Admin: 08/23/18 12:14 Dose: 250 mg Simethicone (Mylicon Chew Tab) 80 mg PO QID [facility] Last Admin: 08/23/18 13:31 Dose: 80 mg Sitagliptin Phosphate (Januvia) 100 mg PO DAILY [facility] Last Admin: 08/23/18 10:35 Dose: 100 mg - Labs Labs: 08/23/18 06:17 08/23/18 06:17 PT 11.2 SECONDS (9.7-12.2) 08/22/18 13:53 INR 1.0 08/22/18 13:53 APTT 33 SECONDS (21-34) 08/22/18 13:53 - Constitutional Appears: Well, No Acute Distress - Head Exam Head Exam: ATRAUMATIC, NORMOCEPHALIC - Eye Exam Eye Exam: EOMI, Normal appearance Additional comments: glasses - ENT Exam ENT Exam: Mucous Membranes Moist Additional comments: old nose ring in place. No erythema, edema, tenderness on L nostril - Respiratory Exam Respiratory Exam: Clear to Ausculation Bilateral, NORMAL BREATHING PATTERN. absent: Rales, Rhonchi, Wheezes - Cardiovascular Exam Cardiovascular Exam: REGULAR RHYTHM, +S1, +S2. absent: Gallop, Rubs, Murmur - GI/Abdominal Exam GI & Abdominal Exam: Soft, Normal Bowel Sounds. absent: Tenderness - Extremities Exam Extremities Exam: Normal Capillary Refill. absent: Calf Tenderness Additional comments: IV access in R hand peripheral pulses palpable bilaterally (radial, DP) - Back Exam Back Exam: absent: CVA tenderness (L), CVA tenderness (R) - Neurological Exam Neurological Exam: Alert, Awake, CN II-XII Intact, Normal Gait - Psychiatric Exam Psychiatric exam: Normal Affect, Normal Mood - Skin Skin Exam: Dry, Normal Color, Warm Assessment and Plan (1) Chest pain Status: Acute - Assessment and Plan (Free Text) Assessment: 68yo F PMH HTN, DM, hypercholesterolemia, RA, CVA x2 in 2011 admitted for persistent CP x4 days r/o ACS. Plan: CP r/o ACS - CXR (08/22): no focal consolidation identified. 9mm nodular opacity at R lung base likely confluence of shadows vs. pulm nodule. If repeat, obtain PA/lat CXR - ASA 325mg given in ED - GAVIN neg x3, EKG NSR@76 - ProBNP 26.3, lipid panel TG 120 Chol 147 LDL 90 HDL 41, TSH 0.57, d-dimer neg - Lipase elevated 453, comparable to previous admission - ECHO (08/23): pending read - Cardio consulted: Dr. Gipson - help appreciated - f/u exercise stress test Diabetes Mellitus with neuropathy - Hgb A1c 8.0 - home Lantus 20u sc HS - home Januvia 100mg po daily - hold home Metformin, Gabapentin - Accuchecks q6h - ISS, medium - hypoglycemia protocol Hypertension - hold home diuretics HCTZ, Losartan - monitor vitals Hypercholesterolemia - lipid panel TG 120 Chol 147 LDL 90 HDL 41 - home Atorvastatin -> Crestor 5mg po HS Stroke x2 in 2012 - ASA 81mg po daily - home Atorvastatin -> Crestor 5mg po HS Rheumatoid Arthritis - hold home Meloxicam PPx - DVT: ASA 81mg po daily - GI: not indicated - Diet: Consistent Carb, HHD 2g Na d/w Dr. Yumiko Zamora PGY-1
--- NOTE | 2018-08-23 18:57 | CP.PCM.CON ---
History of Present Illness - History of Present Illness History of Present Illness: chest pain HPI Review of Systems - Review of Systems Systems not reviewed;Unavailable: Acuity of Condition - Constitutional Constitutional: As Per HPI - EENT Eyes: As Per HPI Ears: As Per HPI Nose/Mouth/Throat: As Per HPI - Breasts Breasts: As Per HPI - Cardiovascular Cardiovascular: As Per HPI - Respiratory Respiratory: As Per HPI - Gastrointestinal Gastrointestinal: As Per HPI - Genitourinary Genitourinary: As Per HPI - Reproductive: Female Reproductive:Female: As Per HPI - Menstruation Menstruation: As Per HPI - Musculoskeletal Musculoskeletal: As Per HPI - Integumentary Integumentary: As Per HPI - Neurological Neurological: As Per HPI - Psychiatric Psychiatric: As Per HPI - Endocrine Endocrine: As Per HPI - Hematologic/Lymphatic Hematologic: As Per HPI Past Patient History - Infectious Disease Hx of Infectious Diseases: None - Past Social History Smoking Status: Former Smoker Alcohol: None Drugs: Denies Home Situation {Lives}: Roommate - CARDIAC Hx Hypercholesterolemia: Yes Hx Hypertension: Yes - NEUROLOGICAL Hx Transient Ischemic Attacks (TIA): Yes (2005, 2011 stroke) - ENDOCRINE/METABOLIC Hx Endocrine Disorders: Yes Hx Diabetes Mellitus Type 2: Yes - MUSCULOSKELETAL/RHEUMATOLOGICAL Hx Rheumatoid Arthritis: Yes - PSYCHIATRIC Hx Substance Use: No - SURGICAL HISTORY Hx Surgeries: Yes Hx Hysterectomy: Yes Other/Comment: Endarectomy x2 - ANESTHESIA Hx Anesthesia: Yes Hx Anesthesia Reactions: No Hx Malignant Hyperthermia: No Meds Allergies/Adverse Reactions: Allergies Allergy/AdvReac Type Severity Reaction Status Date / Time iodine Allergy Verified 08/22/18 10:36 shellfish derived Allergy Verified 08/22/18 10:36 - Medications Medications: Current Medications Aspirin (Ecotrin) 81 mg PO DAILY [facility] Last Admin: 08/23/18 10:35 Dose: 81 mg Dextrose (Dextrose 50% Inj) 0 ml IV STAT PRN; Protocol PRN Reason: Hypoglycemia Protocol Dextrose (Glutose 15) 0 gm PO ONCE PRN; Protocol PRN Reason: Hypoglycemia Protocol Gabapentin (Neurontin) 600 mg PO BID [facility] Last Admin: 08/23/18 17:42 Dose: 600 mg Glucagon (Glucagen Diagnostic Kit) 0 mg IM STAT PRN; Protocol PRN Reason: Hypoglycemia Protocol Heparin Sodium (Porcine) (Heparin) 5,000 units SC Q12 [facility] Last Admin: 08/23/18 10:36 Dose: Not Given Dextrose (Dextrose 5% In Water 1000 Ml) 1,000 mls @ 0 mls/hr IV .Q0M PRN; Protocol PRN Reason: Hypoglycemia Protocol Influenza Virus Vaccine (Fluzone Quad [id number]) 60 mcg IM .ONCE ONE Stop: 08/24/18 10:01 Insulin Aspart (Novolog) 0 unit SC Q6 [facility]; Protocol Last Admin: 08/23/18 17:48 Dose: 2 units Insulin Glargine (Lantus) 20 unit SC [facility] Last Admin: 08/22/18 22:43 Dose: 20 unit Pneumococcal Polyvalent Vaccine (Pneumovax 23 Vaccine) 0.5 ml IM .ONCE ONE Stop: 08/24/18 10:01 Rosuvastatin Calcium (Crestor) 5 mg PO [facility] Last Admin: 08/22/18 22:15 Dose: 5 mg Saccharomyces Boulardii (Florastor) 250 mg PO BID [facility] Last Admin: 08/23/18 17:42 Dose: 250 mg Simethicone (Mylicon Chew Tab) 80 mg PO QID [facility] Last Admin: 08/23/18 17:42 Dose: 80 mg Sitagliptin Phosphate (Januvia) 100 mg PO DAILY [facility] Last Admin: 08/23/18 10:35 Dose: 100 mg Physical Exam - Constitutional Appears: Well - Head Exam Head Exam: ATRAUMATIC, NORMAL INSPECTION, NORMOCEPHALIC - Eye Exam Eye Exam: EOMI, Normal appearance, PERRL Pupil Exam: NORMAL ACCOMODATION, PERRL - ENT Exam ENT Exam: Mucous Membranes Moist, Normal Exam - Neck Exam Neck exam: Positive for: Normal Inspection - Respiratory Exam Respiratory Exam: Clear to Auscultation Bilateral, NORMAL BREATHING PATTERN - Cardiovascular Exam Cardiovascular Exam: REGULAR RHYTHM - GI/Abdominal Exam GI & Abdominal Exam: Normal Bowel Sounds, Soft. absent: Tenderness - Rectal Exam Rectal Exam: NORMAL INSPECTION - Exam Exam: Circumcision, NORMAL INSPECTION External exam: NORMAL EXTERNAL EXAM Speculum exam: NORMAL SPECULUM EXAM Bimanual exam: NORMAL BIMANUAL EXAM - Extremities Exam Extremities exam: Positive for: normal inspection - Back Exam Back exam: NORMAL INSPECTION - Neurological Exam Neurological exam: Alert, CN II-XII Intact, Normal Gait, Oriented x3, Reflexes Normal - Psychiatric Exam Psychiatric exam: Normal Affect, Normal Mood - Skin Skin Exam: Dry, Intact, Normal Color, Warm Results - Vital Signs Recent Vital Signs: Last Vital Signs Temp 98.0 F 08/23/18 15:00 Pulse 79 08/23/18 16:17 Resp 20 08/23/18 15:00 BP 111/68 08/23/18 15:00 Pulse Ox 96 08/23/18 16:04 - Labs Result Diagrams: 08/23/18 06:17 08/23/18 06:17 Labs: Laboratory Results - last 24 hr 08/22/18 08/22/18 08/22/18 17:35 21:13 22:41 WBC RBC Hgb Hct MCV MCH MCHC RDW Plt Count MPV Neut % (Auto) Lymph % (Auto) [place] % (Auto) Eos % (Auto) Baso % (Auto) Neut # (Auto) Lymph # (Auto) [place] # (Auto) Eos # (Auto) Baso # (Auto) Sodium Potassium Chloride Carbon Dioxide Anion Gap BUN Creatinine Est GFR ( Amer) Est GFR (Non-Af Amer) POC Glucose (mg/dL) 190 H Random Glucose Hemoglobin A1c 8.0 H Calcium Phosphorus Magnesium Total Bilirubin AST ALT Alkaline Phosphatase Total Creatine Kinase 52 CK-MB (Mass) < 0.22 Troponin I < 0.0120 Total Protein Albumin Globulin Albumin/Globulin Ratio 08/23/18 08/23/18 08/23/18 00:12 00:12 06:17 WBC 8.4 RBC 4.69 Hgb 13.1 Hct 38.7 MCV 82.5 MCH 27.9 MCHC 33.8 RDW 12.9 Plt Count 273 MPV 9.3 Neut % (Auto) 50.9 Lymph % (Auto) 34.7 [place] % (Auto) 9.9 Eos % (Auto) 3.3 Baso % (Auto) 1.2 Neut # (Auto) 4.2 Lymph # (Auto) 2.9 [place] # (Auto) 0.8 Eos # (Auto) 0.3 Baso # (Auto) 0.1 Sodium Potassium Chloride Carbon Dioxide Anion Gap BUN Creatinine Est GFR ( Amer) Est GFR (Non-Af Amer) POC Glucose (mg/dL) 152 H 152 H Random Glucose Hemoglobin A1c Calcium Phosphorus Magnesium Total Bilirubin AST ALT Alkaline Phosphatase Total Creatine Kinase CK-MB (Mass) Troponin I Total Protein Albumin Globulin Albumin/Globulin Ratio 08/23/18 08/23/18 08/23/18 06:17 06:21 11:51 WBC RBC Hgb Hct MCV MCH MCHC RDW Plt Count MPV Neut % (Auto) Lymph % (Auto) [place] % (Auto) Eos % (Auto) Baso % (Auto) Neut # (Auto) Lymph # (Auto) [place] # (Auto) Eos # (Auto) Baso # (Auto) Sodium 136 Potassium 4.2 Chloride 98 Carbon Dioxide 30 Anion Gap 12 BUN 21 H Creatinine 1.1 Est GFR ( Amer) > 60 Est GFR (Non-Af Amer) 50 POC Glucose (mg/dL) 140 H 214 H Random Glucose 139 H D Hemoglobin A1c Calcium 8.8 Phosphorus 4.3 Magnesium 1.9 Total Bilirubin 1.0 AST 26 ALT 21 Alkaline Phosphatase 72 Total Creatine Kinase CK-MB (Mass) Troponin I Total Protein 7.2 Albumin 3.9 Globulin 3.2 Albumin/Globulin Ratio 1.2 08/23/18 16:15 WBC RBC Hgb Hct MCV MCH MCHC RDW Plt Count MPV Neut % (Auto) Lymph % (Auto) [place] % (Auto) Eos % (Auto) Baso % (Auto) Neut # (Auto) Lymph # (Auto) [place] # (Auto) Eos # (Auto) Baso # (Auto) Sodium Potassium Chloride Carbon Dioxide Anion Gap BUN Creatinine Est GFR ( Amer) Est GFR (Non-Af Amer) POC Glucose (mg/dL) 179 H Random Glucose Hemoglobin A1c Calcium Phosphorus Magnesium Total Bilirubin AST ALT Alkaline Phosphatase Total Creatine Kinase CK-MB (Mass) Troponin I Total Protein Albumin Globulin Albumin/Globulin Ratio Assessment & Plan (1) Chest pain Assessment and Plan: stress test in am npo p mn Status: Acute (2) Diabetes mellitus Status: Acute (3) Hypertension Status: Acute (4) Upper respiratory infection Status: Acute
[2018-08-23] MEDS: (Lantus) Insulin Glargine, Recombinant SC SCH (21:45)
--- NOTE | 2018-08-23 23:03 | CARD ---
APPROVED REPORT Date of service: 08/23/2018 EXAM: Two-dimensional and M-mode echocardiogram with Doppler and color Doppler. Other Information Quality : GoodRhythm : INDICATION CVA/TIA Chest Pain 2D DIMENSIONS IVSd1.0 (0.7-1.1cm)LVDd3.9 (3.9-5.9cm) PWd1.1 (0.7-1.1cm)LA Rwfqum86 (18-58mL) LVDs2.5 (2.5-4.0cm)FS (%) 35.8 % LVEF (%)66.0 (>50%) M-Mode DIMENSIONS Left Atrium (MM)3.28 (2.5-4.0cm)IVSd0.91 (0.7-1.1cm) Aortic Root2.75 (2.2-3.7cm)LVDd4.14 (4.0-5.6cm) Aortic Cusp Exc.1.82 (1.5-2.0cm)PWd0.91 (0.7-1.1cm) FS (%) 37 %LVDs2.59 (2.0-3.8cm) LVEF (%)68 (>50%) Mitral Valve MV E Tstewpng24.7cm/sMV A Hltlqhfk82.4cm/sE/A ratio0.8 TDI Lateral E' Peak V6.87cm/sMedial E' Peak V4.35cm/sE/Lateral E'10.3 E/Medial E'16.3 LEFT VENTRICLE The left ventricle is normal size. There is normal left ventricular wall thickness. Left ventricle systolic function is normal. The Ejection Fraction is 60-65%. There is normal LV segmental wall motion. Transmitral Doppler flow pattern is Grade I-abnormal relaxation pattern. There is no ventricular septal defect visualized. RIGHT VENTRICLE The right ventricle is normal size. The right ventricular systolic function is normal. ATRIA The left atrium is mildly dilated. The right atrium size is normal. AORTIC VALVE The aortic valve is mildly sclerotic. The aortic valve is tri-cuspid. No aortic regurgitation is present. There is no aortic valvular stenosis. MITRAL VALVE The mitral valve is normal in structure. There is no evidence of mitral valve prolapse. There is no mitral valve regurgitation noted. TRICUSPID VALVE The tricuspid valve is normal in structure. There is no tricuspid valve regurgitation noted. PULMONIC VALVE The pulmonic valve is not well visualized. There is trace pulmonic valvular regurgitation. GREAT VESSELS The aortic root is normal in size. The ascending aorta is normal in size. The IVC is normal in size and collapses >50% with inspiration. PERICARDIAL EFFUSION There is a trace circumferential pericardial effusion. <Conclusion> Left ventricle systolic function is normal. The Ejection Fraction is 60-65%. Transmitral Doppler flow pattern is Grade I-abnormal relaxation pattern. There is a trace circumferential pericardial effusion.
[2018-08-24] MEDS: (Novolog) Insulin Aspart, Recombinant 100 u/ml 10 ml vial SC SCH ×3 (00:05→13:49)
[2018-08-24 07:15] LABS: BASO % 0.2 % (0.0-2.0); EOS # 0.3 K/uL (0.0-0.7); EOS % 3.7 % (0.0-4.0); HEMOGLOBIN 12.2 g/dL (11.0-16.0); LYMPH # 3.1 K/uL (1.0-4.3); LYMPH % 36.4 % (20.0-40.0); MEAN CELL VOLUME 83.7 fL (81.0-99.0); MEAN CORPUSCULAR HEMOGLOBIN 27.7 pg (27.0-31.0); MEAN CORPUSCULAR HGB CONC 33.1 g/dL (33.0-37.0); MEAN PLATELET VOLUME 9.8 fL (7.2-11.7); MONO # 0.8 K/uL (0.0-0.8); MONO % 9.4 % (0.0-10.0); NEUT # 4.3 K/uL (1.8-7.0); NEUT % 50.3 % (50.0-75.0); NRBC % 0.1 % (0.0-2.0); RBC 4.41 Mil/uL (3.80-5.20); RED CELL DISTRIBUTION WIDTH 12.8 % (11.5-14.5); WHITE BLOOD COUNT 8.5 K/uL (4.8-10.8)
[2018-08-24 07:43] VITALS: BP 104/67; PULSE 58; TEMP 97.8
[2018-08-24 07:46] LABS: ALB/GLOB RATIO 1.3 (1.0-2.1); ALBUMIN 3.9 g/dL (3.5-5.0); ALT/SGPT 22 U/L (9-52); AST/SGOT 19 U/L (14-36); BLOOD UREA NITROGEN 23 mg/dL (7-17); CALCIUM 8.8 mg/dl (8.6-10.4); GFR NON-AFRICAN AMERICAN 50
[2018-08-24] MEDS ORDERED: Influenza Vaccine 60 MCG/0.5 ML SYR (3 yr & up) IM ONE ×2 (10:00→14:00)
[2018-08-24] MEDS ORDERED: Pneumococcal 23-Valent Vaccine IM ONE ×2 (10:00→14:00)
[2018-08-24] MEDS: Saccharomyces Boulardi 250 mg Cap PO SCH (10:46)
[2018-08-24] MEDS: Simethicone 80 mg Chewtab PO SCH ×2 (10:47→13:49)
--- NOTE | 2018-08-24 13:03 | CARD ---
APPROVED REPORT Date of service: 08/24/2018 Protocol: MELIA Test Type: NUCLEAR STRESS Test Indications: CHEST PAIN Medications: LIST Medical History: cp Target HR: 154 bpm Resting ECG: normal Resting Heart Rate: 69 bpm Resting Blood Pressure: 128/80mmHg submaximum (85%): 131 bpm TEST SUMMARY PRETESTWARM-UP28:[id number]/80.0. EXERCISESTAGE 103:[id number]/80.0. EXERCISESTAGE 203:[id number]/80.0. EXERCISESTAGE 301:[id number]/80.0. HUVGHGKU64:34..[id number]/80.0. POST EXERCISE Reason for Termination: Fatigue Target HR: No Max HR: 134 bpm 88% of Maximum Predicted HR: 154 bpm Exercise duration: 07:05 min:sec, 3 Stage Exercise capacity: 10.1METs Max Blood Pressure: 150/80mmHg Blood Pressure response to exercise: normal resting BP - appropriate response Heart Rate response to exercise: appropriate Chest Pain: No, none Angina index: 0 Arrhythmia: No, none ST Change: No, none Deviation: 0 mm EXAM: Myocardial Perfusion REST/STRESS Imaging Protocol The imaging protocol used to acquire images was Rest Tc-99m/stress Tc-99m 1 day Rest Spect myocardial perfusion imaging was performed in supine position 45 minutes following the injection of 12.5 mCi of Tc-99 Myoview. Gated Stress Spect was performed 45 minutes after intravenous 32.8 mCi Tc-99 Myoview injection. The images were gated to evaluate regional wall motion and calculate ventricular ejection fraction.Images were reconstructed using backfilter projection method in short horizontal and verticle long axis. Spect slices were generated. RESTING DATA EDV57.96mvPT1.20L/min ESV22.00mlMyocardial Mass97.00g Av. Heart Rate63.00bpm EF61.00% STRESS DATA EDV40.56geHT6.50L/min ESV9.00mlMyocardial Mass79.00g EF78.00% Regional WT score at stress:1.00 Regional WM score at stress:0.00 Summed WT score at stress:1.00 Av. Heart Rate82.00bpmSummed WM score at stress:5.00 Study quality was fair. Left Ventricular size was Normal at Rest and Stress. Lung uptake was Normal. Left Ventricular ejection fraction is 78%. The rest and stress images show normal perfusion, normal contraction and thickening. LV Perf. Quant 17 Seg. SSS0.00 17 Seg. SRS0.00 17 Seg. SDS0.00 Stress Defect Extent (% LAD)0.00Rest Defect Extent (% LAD)0.00Rev. Defect Extent (% LAD)0.00 Stress Defect Extent (% LCX)0.00Rest Defect Extent (% LCX)0.00Rev. Defect Extent (% LCX)0.00 Stress Defect Extent (% RCA)0.00Rest Defect Extent (% RCA)0.00Rev. Defect Extent (% RCA)0.00 Stress Defect Extent (% YUMIKO)0.00Rest Defect Extent (% YUMIKO)0.00Rev. Defect Extent (% YUMIKO)0.00 Other Information Quality:Good Overall Exercise Capacity: Good IMPRESSION Normal Myocardial Perfusion exercise stress study Left Ventricle LV Size/Shape: The left ventricle is normal size. LV Thickness: There is mildconcentric left ventricular hypertrophy. LV Function:Left ventricle systolic function is normal. The Ejection Fraction is >70%. Regional Wall Motion:There is normal left ventricular wall motion. Conclusion 1. - Normal myocardial perfusion study with no evidence of ischemia 2. - Normal LVEF
--- NOTE | 2018-08-24 14:01 | CP.PCM.DIS ---
Provider - Provider Date of Admission: 08/22/18 14:27 Attending physician: Yasmine Calderon DO Consults: 08/22/18 16:04 Cardiology Consult Routine Comment: Consulting Provider: Mitesh Gipson Consulting Physician: Mitesh Gipson Reason for Consult: CP r/o ACS, Hx multiple CVA Time Spent in preparation of Discharge (in minutes): 45 Diagnosis - Discharge Diagnosis (1) Chest pain Status: Acute Hospital Course - Lab Results Lab Results: Most Recent Lab Values WBC 8.5 K/uL (4.8-10.8) 08/24/18 07:07 RBC 4.41 Mil/uL (3.80-5.20) 08/24/18 07:07 Hgb 12.2 g/dL (11.0-16.0) 08/24/18 07:07 Hct 36.9 % (34.0-47.0) 08/24/18 07:07 MCV 83.7 fL (81.0-99.0) 08/24/18 07:07 MCH 27.7 pg (27.0-31.0) 08/24/18 07:07 MCHC 33.1 g/dL (33.0-37.0) 08/24/18 07:07 RDW 12.8 % (11.5-14.5) 08/24/18 07:07 Plt Count 253 K/uL (130-400) 08/24/18 07:07 MPV 9.8 fL (7.2-11.7) 08/24/18 07:07 Neut % (Auto) 50.3 % (50.0-75.0) 08/24/18 07:07 Lymph % (Auto) 36.4 % (20.0-40.0) 08/24/18 07:07 [place] % (Auto) 9.4 % (0.0-10.0) 08/24/18 07:07 Eos % (Auto) 3.7 % (0.0-4.0) 08/24/18 07:07 Baso % (Auto) 0.2 % (0.0-2.0) 08/24/18 07:07 Neut # (Auto) 4.3 K/uL (1.8-7.0) 08/24/18 07:07 Lymph # (Auto) 3.1 K/uL (1.0-4.3) 08/24/18 07:07 [place] # (Auto) 0.8 K/uL (0.0-0.8) 08/24/18 07:07 Eos # (Auto) 0.3 K/uL (0.0-0.7) 08/24/18 07:07 Baso # (Auto) 0.0 K/uL (0.0-0.2) 08/24/18 07:07 PT 11.2 SECONDS (9.7-12.2) 08/22/18 13:53 INR 1.0 08/22/18 13:53 APTT 33 SECONDS (21-34) 08/22/18 13:53 D-Dimer, Quantitative < 200 ng/mlDDU (0-243) 08/22/18 17:35 Sodium 135 mmol/L (132-148) 08/24/18 07:07 Potassium 4.4 mmol/L (3.6-5.2) 08/24/18 07:07 Chloride 99 mmol/L (98-107) 08/24/18 07:07 Carbon Dioxide 27 mmol/L (22-30) 08/24/18 07:07 Anion Gap 13 (10-20) 08/24/18 07:07 BUN 23 mg/dL (7-17) H 08/24/18 07:07 Creatinine 1.1 mg/dL (0.7-1.2) 08/24/18 07:07 Est GFR ( Amer) > 60 08/24/18 07:07 Est GFR (Non-Af Amer) 50 08/24/18 07:07 POC Glucose (mg/dL) 270 mg/dL (65-110) H 08/24/18 12:00 Random Glucose 172 mg/dL (65-105) H D 08/24/18 07:07 Hemoglobin A1c 8.0 % (4.2-6.5) H 08/22/18 17:35 Calcium 8.8 mg/dl (8.6-10.4) 08/24/18 07:07 Phosphorus 4.3 mg/dL (2.5-4.5) 08/23/18 06:17 Magnesium 1.9 mg/dL (1.6-2.3) 08/23/18 06:17 Total Bilirubin 1.0 mg/dL (0.2-1.3) 08/24/18 07:07 AST 19 U/L (14-36) 08/24/18 07:07 ALT 22 U/L (9-52) 08/24/18 07:07 Alkaline Phosphatase 74 U/L (38-126) 08/24/18 07:07 Total Creatine Kinase 52 U/L (30-135) 08/22/18 22:41 CK-MB (Mass) < 0.22 ng/mL (0.0-3.38) 08/22/18 22:41 Troponin I < 0.0120 ng/mL (0.00-0.120) 08/22/18 22:41 NT-Pro-B Natriuret Pep 26.3 pg/mL (0-900) 08/22/18 17:35 Total Protein 7.0 g/dL (6.3-8.3) 08/24/18 07:07 Albumin 3.9 g/dL (3.5-5.0) 08/24/18 07:07 Globulin 3.1 gm/dL (2.2-3.9) 08/24/18 07:07 Albumin/Globulin Ratio 1.3 (1.0-2.1) 08/24/18 07:07 Triglycerides 120 mg/dL (0-149) D 08/22/18 17:35 Cholesterol 147 mg/dL (0-199) 08/22/18 17:35 LDL Cholesterol Direct 90 mg/dL (0-129) 08/22/18 17:35 HDL Cholesterol 41 mg/dL (30-70) 08/22/18 17:35 Lipase 453 U/L (23-300) H 08/22/18 17:35 TSH 3rd Generation 0.57 mIU/L (0.46-4.68) 08/22/18 17:35 - Hospital Course Hospital Course: Ms. Bear is a 68 year old female PMH hypertension, diabetes, hypercholesterolemia, rheumatoid arthritis, CVA x2 in 2011 with TIA in 2006 came in today for persistent L chest pain x4 days. The constant sharp pain worsens in waves up to 10/10, lowest 5/10. She thought it was bloating, however GasX did not help. There is associated dizziness, shortness of breath, nausea without v omiting. She was seen in the [facility] 07/30 for a nose infection. She had replaced her nose ring with non-hypoallergenic metal which she reacted to. She was given Clindamycin for that infection. About a week later, she was getting diarrhea. The antibiotic was stopped as her nose was looking better, and she tested negative for C. diff at that visit. Her diarrhea is improving slowly, from 5-6 episodes to poorly formed yesterday. CXR showed no focal consolidation, but a 9mm nodular opacity at R lung base likely confluence of shadows vs. pulm nodule. It was recommended that a repeat CXR be PA/lat for more detail. She was given ASA 325mg in the ED and restarted on most of her home meds while hospitalized. The meds that were held were due to her elevated BUN/Cr which have since normalized. Her BG checks have been on the higher side since she has been refusing ISS. Her BW was negative for organic causes: notably GAVIN neg x3, d-dimer neg, ProBNP 26.3, Lipid Panel normal, TSH normal, Hgb A1c 8.0. Her Lipase was elevated at 453, but that is similar to previous admission without present complaint. ECHO showed normal LV systolic function with an EF of 60-65%. There was an abnormal transmitral Doppler flow relaxation pattern with trace circumferential pericardial effusion. Exercise stress test showed normal myocardial perfusion with no evidence of ischemia and normal LVEF 78%. Primary Diagnosis: Chest Pain Patient is clear for discharge per Drs. Calderon and Brandan. Patient is to restart her home medications. She should continue to take the Probiotics she has been taking for another two weeks. [facility] a week to follow up the diarrhea and for a cardio referral for outpatient stress test. Should this pain persist or worsen, come back to the ED. This was discussed with the patient who understood and agreed. This is a summary of the hospital course. Please refer to the EMR for more detail. - Date & Time of H&P Date of H&P: 08/24/18 Time of H&P: 14:00 Discharge Exam - Head Exam Head Exam: ATRAUMATIC, NORMAL INSPECTION, NORMOCEPHALIC - Eye Exam Eye Exam: EOMI, Normal appearance Pupil Exam: PERRL Additional comments: glasses - ENT Exam ENT Exam: Mucous Membranes Moist Additional comments: old nose ring in place. No erythema, edema, tenderness on L nostril - Respiratory Exam Respiratory Exam: Clear to PA & Lateral, NORMAL BREATHING PATTERN. absent: Rales, Rhonchi, Wheezes - Cardiovascular Exam Cardiovascular Exam: REGULAR RHYTHM, +S1. absent: Gallop, Rubs, Systolic Murmur - GI/Abdominal Exam GI & Abdominal Exam: Normal Bowel Sounds, Soft. absent: Tenderness - Extremities Exam Extremities exam: normal capillary refill Additional comments: peripheral pulses palpable bilaterally (radial, DP) - Back Exam Back exam: absent: CVA tenderness (L), CVA tenderness (R) - Neurological Exam Neurological exam: Alert, CN II-XII Intact, Normal Gait, Oriented x3 - Psychiatric Exam Psychiatric exam: Normal Affect, Normal Mood - Skin Skin Exam: Dry, Intact, Normal Color, Warm Discharge Plan - Follow Up Plan Condition: GOOD Disposition: HOME/ ROUTINE Instructions: Diarrhea in Adolescents and Adults, Acid Reflux (Gastroesophageal Reflux Disease), Adult (DC), Probiotics, Chest Pain (DC) Additional Instructions: Patient is clear for discharge per Drs. Calderon and Brandan. Patient is to restart her home medications. She should continue to take the Probiotics she has been taking for another two weeks. She should follow up in the [facility] downstairs within a week to follow up the diarrhea. Should this pain persist or worsen, come back to the ED. This was discussed with the patient who understood and agreed. Referrals: [facility] [Outside] Clinical Quality Measures - CQM - Stroke Antithrombotic Prescribed: Yes Statin prescribed: Yes - CQM - Heart Failure Angiotensin II Receptor Felix Prescribed: Yes
--- NOTE | 2018-08-27 14:40 | CARD ---
APPROVED REPORT Date of service: 08/22/2018 EKG Measurement Heart [id number] <Conclusion> Suspect arm lead reversal, interpretation assumes no reversal Unusual P axis, possible ectopic atrial rhythm Right axis deviation Abnormal ECG
--- NOTE | 2018-08-27 14:41 | CARD ---
APPROVED REPORT Date of service: 08/22/2018 EKG Measurement Heart [id number] <Conclusion> Normal sinus rhythm Normal ECG
--- NOTE | 2018-08-27 14:45 | CARD ---
APPROVED REPORT Date of service: 08/22/2018 EKG Measurement Heart [id number] [place] [id number] <Conclusion> Normal sinus rhythm Normal ECG
== END 2018-08-24 15:10 | disposition home or self-care (01) ==
LOC: C.ER 10:17 → C.5S 14:27
PROVIDERS: ADMIT Hospitalist; ATTEND Hospitalist
DX: R07.9 Chest pain, unspecified (principal); E11.9 Type 2 diabetes mellitus without complications; I10 Essential (primary) hypertension; E78.5 Hyperlipidemia, unspecified; E78.00 Pure hypercholesterolemia, unspecified; J06.9 Acute upper respiratory infection, unspecified; M06.9 Rheumatoid arthritis, unspecified; Z80.3 Family history of malignant neoplasm of breast; Z82.3 Family history of stroke; Z83.0 Family history of human immunodeficiency virus [HIV] disease; Z83.3 Family history of diabetes mellitus; Z86.73 Personal history of transient ischemic attack (TIA), and cerebral infarction without residual deficits; Z87.891 Personal history of nicotine dependence; Z90.710 Acquired absence of both cervix and uterus
CPT/HCPCS: 36415; 71045; 78452; 80053; 80061; 82550; 82553; 82948; 83036; 83690; 83735; 83880; 84100; 84443; 84484; 85025; 85378; 85610; 85730; 90471; 90674; 90732; 93017; 93306; 99284; A9502; G0378; J1644

== ENCOUNTER 2018-08-27 13:13 | Outpatient (CLI) | payer SELFPAY | END 2018-08-27 13:14 | disposition home or self-care (01) | LOC: C.DIABED 13:14 ==

== ENCOUNTER 2018-10-01 11:15 | Outpatient (CLI) | payer OTHER, SELFPAY | END 2018-10-01 11:16 | disposition home or self-care (01) | LOC: C.DIABED 11:15 | DX: E11.9 Type 2 diabetes mellitus without complications (principal) ==

== ENCOUNTER 2018-11-17 17:01 | Emergency (ER) | payer SELFPAY ==
[2018-11-17 17:23] VITALS: O2SAT 99; BMI 31.8
[2018-11-17] MEDS ORDERED: (Novolin R) Insulin Human Regular 100 units/ml vial SC ONE (17:29)
--- NOTE | 2018-11-17 17:29 | C.PDOC ---
History Of Present Illness 68 years old female with PMHx of diabetes presents specifically requesting insulin and Rx for insulin and needles. Patient states "I ran out of insulin and did not take it last night." Patient's BGL at triage is 266. Patient denies any other complaints. Patient declines any laboratory work and states she feels great. Time Seen by Provider: 11/17/18 17:06 Chief Complaint (Nursing): High Blood Sugar History Per: Patient History/Exam Limitations: no limitations Onset/Duration Of Symptoms: Hrs Current Symptoms Are (Timing): Still Present Current Diabetic Medications: Insulin Causative (Exacerbating) Factor(s): Missed Taking Medication Treatment Prior To Provider Evaluation: Accucheck Recent travel outside of the [place]: No Past Medical History Reviewed: Historical Data, Nursing Documentation, Vital Signs Vital Signs: Last Vital Signs Temp 98.9 F 11/17/18 17:13 Pulse 69 11/17/18 17:13 Resp 18 11/17/18 17:13 BP 189/95 H 11/17/18 17:13 Pulse Ox 99 11/17/18 17:13 - Medical History PMH: Diabetes, HTN, Hypercholesterolemia, Rheumatoid Arthritis, TIA (2005, 2011 stroke) - [employer] Procedures CLOSED ENDOSCOPIC BIOPSY OF LARGE INTESTINE (10/11/02) ENDO RECTUM POLYPECTOMY (10/11/02) ESOPHAGOGASTRODUODENOSCOPY [EGD] W/CLOSED BIOPSY (10/03/06) Family History: States: No Known Family Hx - Social History Hx Tobacco Use: No Hx Alcohol Use: No Hx Substance Use: No - Immunization History Hx Tetanus Toxoid Vaccination: No Hx Influenza Vaccination: No Hx Pneumococcal Vaccination: No Review Of Systems Except As Marked, All Systems Reviewed And Found Negative. Constitutional: Negative for: Fever, Chills Gastrointestinal: Negative for: Nausea, Vomiting, Diarrhea Skin: Negative for: Rash Neurological: Negative for: Weakness, Numbness Physical Exam - Physical Exam Appears: Non-toxic, No Acute Distress Skin: Normal Color, Warm, Dry, No Rash Head: Atraumatic, Normacephalic Eye(s): bilateral: Normal Inspection, PERRL, EOMI Oral Mucosa: Moist Neck: Normal ROM, Supple Chest: Symmetrical, No Tenderness Cardiovascular: Rhythm Regular, No Murmur Respiratory: Normal Breath Sounds, No Rales, No Rhonchi, No Wheezing Gastrointestinal/Abdominal: Soft, No Tenderness Extremity: Normal ROM Extremity: Bilateral: Atraumatic, Normal Color And Temperature, Normal ROM Pulses: Left Radial: Normal, Right Radial: Normal Neurological/Psych: Oriented x3, Normal Speech Gait: Steady ED Course And Treatment O2 Sat by Pulse Oximetry: 99 (RA) Pulse Ox Interpretation: Normal Medical Decision Making Medical Decision Making: Plan: * Insulin * POC Patient currently declines any laboratory work to be done. Patient is specifically requesting insulin and Rx for insulin needles then to be discharged. Patient denies any complaints at this time. Patient is stable for discharge and will be discharged. Care instructions advised and patient is in ag reement. Return if symptoms return, worsen, or persist. i advised her dka is a possiblity, although less likely and lab would def exclude the dx. she declines staets she just wants rx, and will return with [facility]. Disposition - Disposition Disposition: HOME/ ROUTINE Disposition Time: 17:24 Condition: GOOD Prescriptions: Pen Needle, Diabetic [Comfort Ez Pen Needle] 1 each MC DAILY #100 dis.needle Instructions: Hyperglycemia, Adult, How to Use an Insulin Pen Forms: [employer] Connect (Paraguayan) - Clinical Impression Clinical Impression: Hyperglycemia - PA / [facility] / Resident Statement MD/DO has reviewed & agrees with the documentation as recorded. - Scribe Statement Enedelia Arellano All medical record entries made by the Scribe were at my direction and personally dictated by me. I have reviewed the chart and agree that the record accurately reflects my personal performance of the history, physical exam, medical decision making, and the department course for this patient. I have also personally directed, reviewed, and agree with the discharge instructions and disposition.
[2018-11-17] MEDS ORDERED: (Novolin R) Insulin Human Regular 100 units/ml vial ONE (17:45)
[2018-11-17 18:19] VITALS: BP 160/85; PULSE 70; RESP 16; TEMP 98.4
== END 2018-11-17 18:18 | disposition home or self-care (01) ==
LOC: C.ER 17:01
DX: E11.65 Type 2 diabetes mellitus with hyperglycemia (principal); E78.00 Pure hypercholesterolemia, unspecified; I10 Essential (primary) hypertension; M06.9 Rheumatoid arthritis, unspecified; Z86.73 Personal history of transient ischemic attack (TIA), and cerebral infarction without residual deficits; Z79.4 Long term (current) use of insulin

== ENCOUNTER 2018-11-28 14:26 | Outpatient (CLI) | payer OTHER, SELFPAY | END 2018-11-28 14:27 | disposition home or self-care (01) | LOC: C.DIABED 14:26 ==

== ENCOUNTER 2018-12-17 15:05 | Outpatient (CLI) | payer OTHER | END 2018-12-17 15:06 | disposition home or self-care (01) | LOC: C.RADIC 15:05 | DX: M19.90 Unspecified osteoarthritis, unspecified site (principal) ==

== ENCOUNTER 2019-01-16 14:51 | Outpatient (CLI) | payer OTHER | END 2019-01-16 14:52 | disposition home or self-care (01) | LOC: C.DIABED 14:51 ==